=== PATIENT | male | born 1995 | race Caucasian/White ===

== ENCOUNTER 2021-02-11 11:04 | Emergency (ER) | payer OTHER ==
[2021-02-11] MEDS ORDERED: Lidocaine 1% w/Epinephrine 1:100K 20 ML VIAL ONE (11:33)
== END 2021-02-11 11:51 | disposition home or self-care (01) ==
LOC: BURERS 11:04
DX: L02.31 Cutaneous abscess of buttock (principal); F17.210 Nicotine dependence, cigarettes, uncomplicated
CPT/HCPCS: 10060

== ENCOUNTER 2021-12-19 06:43 | Emergency (ER) | payer OTHER ==
[2021-12-19] MEDS ORDERED: Ketorolac Tromethamine 30 MG/ML VIAL ONE (07:47)
== END 2021-12-19 07:58 | disposition home or self-care (01) ==
LOC: BURERS 06:43
DX: S42.002A Fracture of unspecified part of left clavicle, initial encounter for closed fracture (principal); F17.210 Nicotine dependence, cigarettes, uncomplicated; W22.8XXA Striking against or struck by other objects, initial encounter
CPT/HCPCS: 96372; J1885